=== PATIENT | female | born 1990 | race Caucasian/White ===

== ENCOUNTER 2019-07-03 06:00 | Outpatient (RCR) | payer OTHER, SELFPAY | END 2019-07-17 00:01 | LOC: GPT 06:00 | PROVIDERS: Family Provider Family Medicine; Visit Provider Family Medicine | DX: G56.91 Unspecified mononeuropathy of right upper limb (principal) | CPT/HCPCS: 97110; 97161; 97530; G0283 ==

== ENCOUNTER 2019-07-18 06:00 | Outpatient (RCR) | payer OTHER, BC, SELFPAY | END 2019-08-17 23:59 | disposition home or self-care (01) | LOC: GPT 06:00 | PROVIDERS: Family Provider Family Medicine; PCP Family Medicine; Visit Provider Family Medicine | DX: G56.90 Unspecified mononeuropathy of unspecified upper limb (principal); M25.511 Pain in right shoulder | CPT/HCPCS: 97032; 97110; 97140; 97530 ==

== ENCOUNTER → 2019-07-23 08:49 | Outpatient (BNVA) | payer OTHER, SELFPAY | PROVIDERS: Family Provider Family Medicine; PCP Family Medicine; Visit Provider Specialist | DX: G56.01 Carpal tunnel syndrome, right upper limb (principal) | CPT/HCPCS: 95908 ==

== ENCOUNTER 2024-08-18 06:00 | Outpatient (RCR) | payer BC, SELFPAY | END 2024-09-14 23:59 | disposition home or self-care (01) | LOC: GPT 06:00 | PROVIDERS: Visit Provider Family Medicine | DX: M25.552 Pain in left hip (principal) | CPT/HCPCS: 97110; 97161 ==

== ENCOUNTER 2024-09-15 06:30 | Outpatient (RCR) | payer BC, SELFPAY | END 2024-10-15 23:59 | disposition home or self-care (01) | LOC: GPT 06:30 | PROVIDERS: Visit Provider Family Medicine | DX: M25.552 Pain in left hip (principal) | CPT/HCPCS: 97110; 97112; 97140 ==

== ENCOUNTER 2024-10-16 05:00 | Outpatient (RCR) | payer BC, SELFPAY | END 2024-11-14 23:59 | disposition home or self-care (01) | LOC: GPT 05:00 | PROVIDERS: Visit Provider Family Medicine | DX: M25.552 Pain in left hip (principal) | CPT/HCPCS: 97110; 97164 ==